=== PATIENT | female | born 1995 | race Caucasian/White ===

== ENCOUNTER 2016-12-25 18:24 | Emergency (ER) | payer OTHER ==
[~2016-12-25] VITALS: Ht 154.9 cm; Wt 48.6 kg
[2016-12-25 19:15] LABS: CALCIUM 9.5 mg/dL (8.5-10.1); CARBON DIOXIDE 29.9 mmol/L (21-32); CHLORIDE SERUM 104 mmol/L (98-107); CREATININE SERUM 0.7 mg/dL (0.6-1.0); GFR1 > 60 mL/min; GLUCOSE SERUM 139 mg/dL (74-106); POTASSIUM SERUM 3.8 mmol/L (3.5-5.1); SODIUM SERUM 140 mmol/L (136-145)
[2016-12-25 19:16] LABS: BASOPHIL % 0.2 % (0-2); PLATELET COUNT 167 x10^3mcL (130-400); RED CELL DISTRIBUTION WIDTH 13.3 % (11.5-14.5)
[2016-12-25 19:20] LABS: ALBUMIN 4.3 g/dL (3.4-5.0); ALKALINE PHOSPHATASE 86 U/L (46-116); ALT/SGPT 24 U/L (14-59); AMYLASE 114 U/L (25-115); AST/SGOT 24 U/L (15-37); BILIRUBIN TOTAL 1.04 mg/dL (0.20-1.00); LIPASE 122 IU/L (73-393); TOTAL PROTEIN, SERUM 7.8 g/dL (6.4-8.2)
[2016-12-25 20:06] VITALS: BP 126/76
== END 2016-12-25 20:06 | disposition home or self-care (01) ==
LOC: ED 18:24
PROVIDERS: Emergency Medicine
DX: R10.13 Epigastric pain (principal); D72.829 Elevated white blood cell count, unspecified; G43.909 Migraine, unspecified, not intractable, without status migrainosus
CPT/HCPCS: 83880; Q0092

== ENCOUNTER 2016-12-26 19:36 | Emergency (ER) | payer OTHER ==
[2016-12-26 19:44] VITALS: BP 130/85
== END 2016-12-26 20:00 | disposition home or self-care (01) ==
LOC: ED 19:36
DX: R10.13 Epigastric pain (principal)

== ENCOUNTER 2019-02-03 20:05 | Emergency (ER) | payer OTHER ==
[~2019-02-03] VITALS: Ht 152.4 cm; Wt 56.7 kg
[2019-02-03 20:10] VITALS: Ht 152.4 cm; Wt 56.7 kg
[2019-02-03 20:49] VITALS: BP 124/65
== END 2019-02-03 20:49 | disposition home or self-care (01) ==
LOC: ED 20:05
DX: S00.411A Abrasion of right ear, initial encounter (principal); H61.23 Impacted cerumen, bilateral; X58.XXXA Exposure to other specified factors, initial encounter; Y93.89 Activity, other specified; Y92.89 Other specified places as the place of occurrence of the external cause; Y99.8 Other external cause status

== ENCOUNTER 2020-11-03 16:21 | Emergency (ER) | payer BC ==
[~2020-11-03] VITALS: Ht 149.9 cm; Wt 52.6 kg
[2020-11-03 16:36] VITALS: Ht 149.9 cm; Wt 52.6 kg
[2020-11-03 17:22] LABS: microscopic required? NO
[2020-11-03 17:27] LABS: BASOPHIL % 0.5 % (0.2-1.3); PLATELET COUNT 168 x10^3mcL (179-408); RED CELL DISTRIBUTION WIDTH 13.6 % (12.3-17.7)
[2020-11-03 17:37] LABS: UA SPECIFIC GRAVITY <=1.005 (1.005-1.035); urine erythrocyte NEGATIVE (NEGATIVE)
[2020-11-03] MEDS ORDERED: TYLOPHEN500 MG PO (20:04)
[2020-11-03 20:32] VITALS: BP 98/56
== END 2020-11-03 20:32 | disposition home or self-care (01) ==
LOC: ED 16:21
PROVIDERS: Emergency Medicine
DX: O34.81 Maternal care for other abnormalities of pelvic organs, first trimester (principal); N83.202 Unspecified ovarian cyst, left side; R10.2 Pelvic and perineal pain; R10.30 Lower abdominal pain, unspecified; Z3A.01 Less than 8 weeks gestation of pregnancy